=== PATIENT | female | born 1945 | race Hispanic/Latino ===

== ENCOUNTER 2019-10-29 11:51 | Emergency (ER) | payer MEDICARE ==
[~2019-10-29 11:51] MED LIST: CITA-107 PO; COLE1TAB2 PO; FERS325 PO; FOLI1TAB15 PO; LISI-613 PO; LORA1TAB3 PO; PRIM50TA29 PO; QUET200T29 PO; QUET50TA55 PO; TEMA30CA PO
[2019-10-29] MEDS ORDERED: KETOROLAC TROMETHAMINE 30MG/ML ONE (13:07)
[2019-10-29] MEDS ORDERED: LIDOCAINE 5% TOPICAL PATCH TP ONE (13:07)
[2019-10-29] MEDS ORDERED: CYCLOBENZAPRINE HCL 10 MG TABLET ONE (13:08)
[2019-10-29 13:26] LABS: APPEARANCE,URINE Clear (CLEAR); BILIRUBIN,URINE Negative (NEGATIVE); COLOR,URINE Yellow (YELLOW); GLUCOSE, URINE (UA) Negative (NEGATIVE); KETONES,URINE Negative (NEGATIVE); LEUKOCYTE ESTERASE ,URINE Trace (NEGATIVE); NITRATE,URINE Negative (NEGATIVE); OCCULT BLOOD,URINE Negative (NEGATIVE); PROTEIN,URINE Negative (NEGATIVE)
[2019-10-29 13:46] LABS: BACTERIA,URINE Few /HPF (None Seen); RBC,URINE 0-1 /HPF (0-1)
== END 2019-10-29 14:26 | disposition home or self-care (01) ==
LOC: EDH 11:51
DX: M54.41 Lumbago with sciatica, right side (principal); M79.661 Pain in right lower leg; M79.662 Pain in left lower leg
CPT/HCPCS: 73562; 81001; 96372; 99285; J1885; 93970